=== PATIENT | male | born 1935 | race Caucasian/White ===

== ENCOUNTER 2016-08-08 14:07 | Emergency (ER) | payer MEDICARE, OTHER ==
[2016-08-08 12:19] LABS: BASOPHILS 0.4 %; BASOPHILS ABSOLUTE 0.02 10/3/uL (0.0-0.16); EOSINOPHILS 1.3 %; EOSINOPHILS ABSOLUTE 0.06 10/3/uL (0.0-0.53); HEMATOCRIT 38.3 % (40.0-51.0); HEMOGLOBIN 12.7 g/dL (13.6-17.8); LYMPHOCYTES ABSOLUTE 1.41 10/3/uL (0.67-4.30); MANUAL DIFF NO %; MEAN CORPUS HGB CONC 33.2 g/dL (32.0-36.0); MEAN CORPUSCULAR HEMOGLOB 31.8 pg (26.0-34.0); MEAN CORPUSCULAR VOLUME 95.8 fL (80-100); MEAN PLATELET VOLUME 11.4 fL (9.2-13.0); MONOCYTES 7.9 %; MONOCYTES ABSOLUTE 0.36 10/3/uL (0.21-1.20); NEUTROPHILS 59.4 %; PLATELET COUNT 194 10/3/uL (150-400); RBC DISTRIBUTION WIDTH 14.4 % (12.0-16.0); WHITE BLOOD CELLS 4.6 10/3/uL (4.5-10.5)
[2016-08-08 12:25] LABS: PARTIAL THROMBO TIME 25.7 SEC (22.5-37.2); PROTIME (NOT ORD) 13.2 SEC (12.0-14.5)
[2016-08-08 12:35] LABS: BUN (BLOOD UREA NITROGEN) 13 MG/DL (6-23); CALCIUM, SERUM 9.1 MG/DL (8.5-10.4); CHEST PAIN PROFILE TAT 0 Hrs 20 Mins; CHLORIDE, SERUM 105 MMOL/L (96-112); CO2 (CARBON DIOXIDE) 28 MMOL/L (24-34); GFR AFRICAN AMERICAN 82 ML/MIN (>=60); GFR NON AFRICAN AMERICAN 71 ML/MIN (>=60); GLUCOSE, SERUM 218 MG/DL (60-99); POTASSIUM, SERUM 4.8 MMOL/L (3.5-5.3); SODIUM, SERUM 139 MMOL/L (135-148); TROPONIN I <0.02 NG/ML (<0.05)
[~2016-08-08 14:07] MED LIST: *UNABLE1; ACET500CAP PO; ALTA2.5 PO; ALTA5 PO; AMARYL1 MG PO; AMARYL2 PO; AMARYL4 PO; ASAB PO; ATIVAN2 MG PO; AVODART PO; CENTRUM TAB1 TAB PO; CO Q-10100 MG PO; COQ10100 MG PO; COREG12 PO; COZ50 PO; DSS PO; EFFIENT10 PO; FLAG500TAB PO; FLOMAX4 PO; FOLIC ACID 400MCG; FOLIC ACID400 MC1 PO; FOLIC PO; GLUCPH PO; IMDUR PO; IMDUR120 PO; JANUMET1 TA1 PO; LEVAQUIN5T PO; LIPITOR80 MG PO; LOP100 PO; LOP25 PO; LOP50 PO; LORTAB 5 PO; MACRO50B PO; MOBIC15 MG PO; NEXIUM40 PO; NITROQUICK0.4 MG SL; NITROSTAT0.4 MG SL; NTG150; NTG150 SL; OTC EYE DROP OPH; POLY IRON150 MG PO; PRADAXA150 MG PO; PROSCAR5 PO; SACU1TAB PO; TRAZ50 PO; VIT B-SIX 50 MG50 MG OR; VITAMIN B-121000 MC1 SL; VITAMIN B-625 MG OR; VITAMIN C PO; VITAMIN C100 M1 PO; VITC500 PO; ZOFRAN4 PO
[2016-10-15] MEDS ORDERED: ASAB PO (16:23)
[2016-10-15] MEDS ORDERED: SACU1TAB PO (16:23)
[2016-10-15] MEDS ORDERED: PLAVIX PO (16:24)
[2016-10-15] MEDS ORDERED: LIPITOR80 MG PO (16:24)
[2016-10-15] MEDS ORDERED: NITROSTAT0.4 MG PO (16:24)
[2016-10-15] MEDS ORDERED: NITRO PUMP SL (16:25)
[2016-10-15] MEDS ORDERED: FLOMAX4 PO (16:26)
[2016-10-15] MEDS ORDERED: PROLOP100 PO (16:26)
[2016-10-15] MEDS ORDERED: PROSCAR5 PO (16:29)
[2016-10-15] MEDS ORDERED: GLUCPH PO (16:29)
[2016-10-15] MEDS ORDERED: AMARYL4 PO (16:30)
[2016-10-15] MEDS ORDERED: COREG12 PO (16:30)
[2016-10-15] MEDS ORDERED: IMDUR120 PO (16:30)
[2016-10-15] MEDS ORDERED: NEXIUM20 M1 PO (16:31)
[2016-10-15] MEDS ORDERED: ZOFRAN4 PO (16:32)
[2016-10-15] MEDS ORDERED: ZANTAC 150 PO (16:33)
[2016-10-15] MEDS ORDERED: CENTRUM PO (16:33)
[2016-10-15] MEDS ORDERED: CO Q-10100 MG PO (16:33)
[2016-10-15] MEDS ORDERED: ACET500CAP PO (16:34)
[2016-10-15] MEDS ORDERED: REFRESH OPH (16:35)
[2016-10-16] MEDS ORDERED: MOBIC15 MG PO (19:32)
[2016-10-30] MEDS ORDERED: REFRESH OPH SO0.3 ML OPH (10:39)
[2016-10-30] MEDS ORDERED: MULTIPLE VIT PO (10:49)
[2016-10-30] MEDS ORDERED: ZANTAC 150 PO (10:50)
== END 2016-08-08 14:09 | disposition home or self-care (01) ==
LOC: ER 14:07
PROVIDERS: Emergency Medicine
DX: R07.89 Other chest pain (principal); I10 Essential (primary) hypertension; Z95.1 Presence of aortocoronary bypass graft; Z95.5 Presence of coronary angioplasty implant and graft; K21.9 Gastro-esophageal reflux disease without esophagitis; E11.9 Type 2 diabetes mellitus without complications; Z88.2 Allergy status to sulfonamides; Z88.1 Allergy status to other antibiotic agents; Z88.5 Allergy status to narcotic agent; Z79.84 Long term (current) use of oral hypoglycemic drugs; Z79.82 Long term (current) use of aspirin; Z79.899 Other long term (current) drug therapy
CPT/HCPCS: 71020; 80048; 83735; 84484; 85025; 85610; 85730; 93005; 99285; A9270-GY